=== PATIENT | male | born 1990 | race Caucasian/White ===

== ENCOUNTER 2017-08-21 15:05 | Emergency (ER) | payer OTHER, BC ==
[~2017-08-21] VITALS: Ht 177.8 cm; Wt 120.2 kg
[~2017-08-21 15:05] MED LIST: AMOXICILLIN500 MG PO; ATIVAN0.5 MG PO; CATAFLAM50 MG PO; CLARITIN10 MG PO; COMBIVENT1 ARO IH; KENALOG0.1% TP; MEDROL DOSEPAK4 MG PO; NAPROSYN500 MG PO; PAXIL10 MG PO; PENICILLIN VK500 MG PO; PREDNISONE50 MG PO; SILVADENE,SSD C50 GM PO; TRAMADOL HCL50 MG PO; VALIUM10 MG PO; ZITHROMAX Z PA250 MG PO
[2017-08-21] MEDS ORDERED: CYCLOBENZAPRINE5 M3 PO (17:30)
== END 2017-08-21 22:06 | disposition home or self-care (01) ==
LOC: ED 15:05
DX: S29.019A Strain of muscle and tendon of unspecified wall of thorax, initial encounter (principal); X58.XXXA Exposure to other specified factors, initial encounter; Y93.89 Activity, other specified; Y92.89 Other specified places as the place of occurrence of the external cause; Y99.8 Other external cause status

== ENCOUNTER 2018-02-08 05:11 | Emergency (ER) | payer BC ==
[~2018-02-08] VITALS: Ht 177.8 cm; Wt 115.7 kg
[~2018-02-08 05:11] MED LIST changes: +CYCLOBENZAPRINE5 M3 PO
[2018-02-08 05:39] LABS: BASO # 0.1 10*3/uL (0.0-0.1); BASO % 0.6 % (0.0-1.0); EOS # 0.1 10*3/uL (0.0-0.4); EOS % 1.3 % (1.0-4.0); HEMATOCRIT 46.3 % (42.0-52.0); HEMOGLOBIN 16.4 g/dl (14.0-18.0); LYMPH % 30.7 % (27.0-41.0); MEAN CELL VOLUME 86.9 fl (80.0-94.0); MEAN CORPUSCULAR HGB 30.8 pg (27.0-31.0); MEAN CORPUSCULAR HGB CONC 35.4 g/dl (33.0-37.0); MONO # 0.6 10*3/uL (0.1-1.0); MONO % 6.3 % (3.0-9.0); NEUT # 5.9 10*3/uL (2.3-7.9); NEUT % 60.9 % (47.0-73.0); PLATELET COUNT AUTOMATED 268 10*3/uL (130-400); RED BLOOD COUNT 5.33 10*6/uL (4.50-5.90); RED CELL DISTRI WIDTH 12.6 % (0-14.5); WHITE BLOOD COUNT 9.7 10*3/uL (4.8-10.8)
[2018-02-08 05:56] LABS: ALBUMIN 3.9 gm/dl (3.1-4.5); ALKALINE PHOSPHATASE 106 U/L (45-117); BUN 9 mg/dl (7-24); CHLORIDE 107 mmol/L (98-107); CREATININE 0.96 mg/dL (0.70-1.30); POTASSIUM 3.7 mmol/L (3.5-5.1); SGOT/AST 24 IU/L (3-35); SGPT/ALT 48 U/L (12-78); SODIUM 141 mmol/L (136-145); TOTAL PROTEIN 7.5 gm/dL (6.4-8.2)
[2018-02-08 06:02] LABS: THYROID STIM HORMONE (HS) 0.971 uIU/ml (0.358-4.75)
[2018-02-08] MEDS ORDERED: ATIVAN1 MG PO (06:05)
[2018-02-08 06:06] LABS: TROPONIN I < 0.015 ng/ml (<0.045)
== END 2018-02-08 06:39 | disposition home or self-care (01) ==
LOC: ED 05:11
PROVIDERS: Emergency Medicine Emergency Medical Services
DX: F41.9 Anxiety disorder, unspecified (principal); F43.9 Reaction to severe stress, unspecified

== ENCOUNTER 2018-08-15 19:21 | Emergency (ER) | payer OTHER, BC ==
[~2018-08-15] VITALS: Ht 180.3 cm; Wt 90.7 kg
[~2018-08-15 19:21] MED LIST changes: +ATIVAN1 MG PO
[2018-08-17 10:07] LABS: HEPATITIS B SURFACE AG Negative (Negative); HEPATITIS C VIRUS ANTIBODY <0.1 s/co (0.0-0.9)
== END 2018-08-15 19:50 | disposition home or self-care (01) ==
LOC: ED 19:21
PROVIDERS: Student in an Organized Health Care Education/Training Program
DX: R23.4 Changes in skin texture (principal); Z77.21 Contact with and (suspected) exposure to potentially hazardous body fluids

== ENCOUNTER → 2023-05-29 | Outpatient (CLI) | payer BC | END | disposition home or self-care (01) | LOC: US 16:34 | PROVIDERS: ATTEND Family Medicine | DX: R23.3 Spontaneous ecchymoses (principal) ==

== ENCOUNTER 2023-07-21 18:11 | Emergency (ER) | payer BC ==
[~2023-07-21] VITALS: Wt 108.9 kg
[2023-07-21] MEDS ORDERED: VIBRAMYCIN100 MG PO (19:48)
== END 2023-07-21 20:06 | disposition home or self-care (01) ==
LOC: ED 18:11
DX: L02.412 Cutaneous abscess of left axilla (principal); F32.A Depression, unspecified; F41.9 Anxiety disorder, unspecified; Z98.890 Other specified postprocedural states

== ENCOUNTER 2024-06-03 04:23 | Emergency (ER) | payer BC ==
[~2024-06-03 04:23] MED LIST changes: +VIBRAMYCIN100 MG PO
[2024-06-03] MEDS ORDERED: Doxycycline Hyclate 100 MG CAP PO ONE (04:40)
[2024-06-03] MEDS ORDERED: VIBRAMYCIN100 MG PO (04:44)
== END 2024-06-03 04:54 | disposition home or self-care (01) ==
LOC: ED 04:23
DX: A69.20 Lyme disease, unspecified (principal); F32.A Depression, unspecified; F41.9 Anxiety disorder, unspecified; Z98.890 Other specified postprocedural states